=== PATIENT | female | born 1945 | race Caucasian/White ===

== ENCOUNTER 2017-10-18 14:36 | Day surgery (SDC) | payer MEDICARE ==
[~2017-10-18 14:36] MED LIST: DEXAMETHASONE SOD PHOSPHATE INJ 4 MG/1 ML VIAL ONE; GLYCOPYRROLATE INJ 0.4 MG/2 ML VIAL ONE; LIDOCAINE 2% INJ-PF (20 MG/ML) 2 ML AMPUL ONE; METOCLOPRAMIDE HCL INJ/PF 10 MG/2 ML SDV ONE
[2017-10-18 16:31] LABS: HEMATOCRIT 42.3 % (36.0-47.0); MEAN CORPUSCULAR HEMOGLOBIN 29.2 pg (27.0-33.4); MEAN CORPUSCULAR VOLUME 89 fl (80-97); PLATELET COUNT 244 10^3/uL (150-450); RED BLOOD COUNT 4.78 10^6/uL (3.72-5.28); WHITE BLOOD COUNT 9.8 10^3/uL (4.0-10.5)
[2017-10-18 16:42] LABS: ALANINE AMINOTRANSFERASE 23 U/L (9-52); ALBUMIN 3.9 g/dL (3.5-5.0); ALKALINE PHOSPHATASE 64 U/L (38-126); ANION GAP 10 (5-19); ASPARTATE AMINO TRANSFERASE 19 U/L (14-36); BILIRUBIN,DIRECT 0.4 mg/dL (0.0-0.4); BILIRUBIN,TOTAL 0.4 mg/dL (0.2-1.3); BLOOD UREA NITROGEN 36 mg/dL (7-20); CALCIUM 9.3 mg/dL (8.4-10.2); CARBON DIOXIDE 25 mmol/L (22-30); CHLORIDE 108 mmol/L (98-107); GLUCOSE 94 mg/dL (75-110); POTASSIUM 4.1 mmol/L (3.6-5.0); SODIUM 143.4 mmol/L (137-145)
[2017-10-18] MEDS ORDERED: LIDOCAINE 1%/EPINEPHRINE INJ 20 ML VIAL ONE (18:41)
[2017-10-18] MEDS ORDERED: LIDOCAINE 2% JELLY 30 ML TUBE ONE (18:41)
--- NOTE | 2017-10-18 18:43 | EKG REPORT ---
SEVERITY:- ABNORMAL ECG - SINUS RHYTHM PROBABLE LEFT ATRIAL ABNORMALITY LEFT VENTRICULAR HYPERTROPHY NONSPECIFIC T ABNORMALITIES, INFERIOR LEADS : Confirmed by: Berto Carpenter MD 18-Oct-2017 18:43:18
[2017-10-18] MEDS ORDERED: ACETAMINOPHEN 100 ML IV ONE (19:06)
[2017-10-18] MEDS ORDERED: PROPOFOL INJ 200 MG/20 ML VIAL IV ONE (19:06)
[2017-10-18] MEDS ORDERED: MIDAZOLAM 2 MG/2 ML INJ ONE (19:06)
[2017-10-18] MEDS ORDERED: KETAMINE HCL INJ 500 MG/10 ML VIAL ONE (19:06)
[2017-10-18] MEDS ORDERED: FENTANYL CITRATE INJ/PF 100 MCG/2 ML AMPUL ONE (19:06)
[2017-10-18] MEDS ORDERED: EPHEDRINE SULFATE INJ 50 MG/1 ML AMPULE ONE (19:06)
[2017-10-18] MEDS ORDERED: ONDANSETRON HCL INJ/PF 4 MG/2 ML SDV IV PRN (19:12)
[2017-10-18] MEDS ORDERED: PROMETHAZINE HCL INJ 25 MG/1 ML VIAL IV PRN ×2 (19:12)
[2017-10-18] MEDS ORDERED: DIPHENHYDRAMINE HCL 50 MG/ML VIAL IV PRN (19:12)
[2017-10-18] MEDS ORDERED: MEPERIDINE HCL/PF INJ 25 MG/1 ML DISP.SYRIN IV PRN (19:12)
[2017-10-18] MEDS ORDERED: FENTANYL CITRATE INJ/PF 100 MCG/2 ML AMPUL IV PRN ×3 (19:12)
--- NOTE | 2017-10-18 20:08 | Discharge Summary ---
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 Follow-up with Dr. [facility] 1 Referrals: MOISÉS SMITH MD [Primary Care Provider] - Discharge Diet: As Tolerated Discharge Activity: Activity As Tolerated Home Care Assistance: None Needed Report the Following to Your Physician Immediately: Shortness of Breath, Increase in Pain, Fever over 101 Degrees
--- NOTE | 2017-10-18 20:15 | Operative Report ---
Operative Report DATE OF SURGERY: 10/18/17 PREOPERATIVE DIAGNOSIS: Perianal abscess. Crohn's disease. Rule out fistula in ano POSTOPERATIVE DIAGNOSIS: Same OPERATION: 1. Examination under anesthesia. 2. Excisional debridement of left anterior lateral perianal fistula. 3. 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 Surgical plan surgical timeout were conducted. The legs were placed in stirrup position. Exposure to the buttocks achieved. The perineum and anal tissue was prepped with Betadine Eyes were significant purulent discharge emanating from the perianal abscess just lateral to the anal verge. The skin was opened up with a knife blade, and a small amount of fibrinous tissue debrided. The cavity was evacuated of pus which extended from the 12 to the 3 o'clock position. I was able to demonstrate a communication between the abscess cavity and the anal canal which was a direct radial communication. We placed a loop seton in place using a dev loop tied it and not. The cavity was felt to be adequately debrided with a curette. Of note there were several small scars in the patient's left perianal right perianal tissue consistent with previous abscesses. Rectal examination performed manually and no other palpable pathology other than fistula tract is identified was Identified. Naturally this was a limited exam due to the patient's suboptimal body position and nonetheless I felt like we had performed adequate drainage. The seton was placed in the superficial location , likely not through the external sphincter muscle. The seton will be left in place for subsequent tightening Patient tolerated procedure well and taken recovery in stable condition.
[2017-10-18 22:31] VITALS: BP 125/45
== END 2017-10-18 23:35 | disposition home or self-care (01) ==
LOC: OROUT 14:36 → 2N 14:36 → OROUT 23:35
PROVIDERS: ATTEND Surgery
PROC: 0DBQ0ZZ Excision of Anus, Open Approach (ICD-10-PCS; principal; 2017-10-18 17:30)
DX: K61.0 Anal abscess (principal); E11.9 Type 2 diabetes mellitus without complications; I10 Essential (primary) hypertension; M46.90 Unspecified inflammatory spondylopathy, site unspecified; Z96.642 Presence of left artificial hip joint; M19.90 Unspecified osteoarthritis, unspecified site; F17.210 Nicotine dependence, cigarettes, uncomplicated; Z85.3 Personal history of malignant neoplasm of breast; Z79.82 Long term (current) use of aspirin; Z79.899 Other long term (current) drug therapy; Z87.19 Personal history of other diseases of the digestive system; Z88.6 Allergy status to analgesic agent
CPT/HCPCS: 36415; 85027; 80053; 93005; 93010; 46020; J2250; J1100; J3010; J3490 ×3; J2765; J2704; J0131; 902